=== PATIENT | female | born 2005 | race Caucasian/White ===

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

== ENCOUNTER 2025-02-01 00:22 | Emergency (ER) | payer OTHER, SELFPAY ==
[2025-02-01 00:03] VITALS: BP 123/81; BP 130/86; PULSE 114; PULSE 93; RESP 16; TEMP 37.1; O2SAT 98; BMI 22.6
[2025-02-01 00:49] LABS: UPreg QC Valid YES
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
[2025-02-01 02:48] VITALS: BP 113/71; PULSE 84; RESP 16; TEMP 36.7; O2SAT 98
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
[2025-02-01 03:26] VITALS: BP 113/71; PULSE 84; RESP 16; TEMP 36.7; O2SAT 98
== END 2025-02-01 03:27 | disposition home or self-care (01) ==
PROVIDERS: Emergency Provider Emergency Medicine
DX: M54.2 Cervicalgia (principal); M54.6 Pain in thoracic spine; M54.50 Low back pain, unspecified; V43.62XA Car passenger injured in collision with other type car in traffic accident, initial encounter; Y93.9 Activity, unspecified; Y92.9 Unspecified place or not applicable; Y99.9 Unspecified external cause status; F41.9 Anxiety disorder, unspecified; Z59.01 Sheltered homelessness; Z33.1 Pregnant state, incidental
CPT/HCPCS: 81025; 99284

== ENCOUNTER 2025-02-17 23:02 | Emergency (ER) | payer OTHER, SELFPAY ==
[2025-02-17 23:16] VITALS: BP 117/72; PULSE 74; RESP 18; TEMP 36.9; O2SAT 99; BMI 21.3
--- OUTSIDE RECORDS SUMMARY | 2025-02-18 00:43 | XMS_ITS ---
Author Name [facility] Organization Unknown Care Team Organization Name Specialty Phone Email Start Date End Da te [facility] 10/24/2022 024 [facility] 04/26/20222023
[2025-02-18 01:24] LABS: Hematocrit 30.3 % (37.0-47.0); Hemoglobin 10.6 g/dl (12.0-16.0); Mean Corpuscular HGB Conc 35.0 g/dl (31.0-35.0); Mean Corpuscular Hemoglobin 28.3 pg (27.0-33.0); Mean Corpuscular Volume 81.0 fL (80.0-98.0); NRBC Abs Auto 0.000 X10*3/uL (0.0-0.012); NRBC Pct Auto 0.0 /100WBC (0.0-0.2); Platelet Count 283 X10*3/uL (160-400); Red Blood Count 3.74 X10*6/uL (4.20-5.50); White Blood Count 6.1 X10*3/uL (4.8-10.8)
[2025-02-18 01:25] LABS: Appearance Urine Clear; Glucose Urine UA Negative (Negative); PH 6.0 (5.0-9.0); Specific Gravity - Urine >= 1.030 (1.005-1.025); UMIC TRIGGER UACC YES
[2025-02-18 01:27] LABS: UACC Culture Trigger YES
[2025-02-18 01:49] LABS: Alanine Aminotransferase 9 U/L (0-31); Albumin Level 4.0 g/dL (3.5-5.0); Alkaline Phosphatase 48 U/L (39-117); Anion Gap 12 (12-20); Aspartate Amino Transferase 16 U/L (5-31); Blood Urea Nitrogen 9 mg/dL (9-16); Calcium 8.5 mg/dL (8.4-10.2); Carbon Dioxide 22 mmol/L (22-29); Chloride 108 mmol/L (96-108); Creatinine Clr Calc Pharmacy 136.4; Estimated Glomerular Filt Rate > 60; Potassium 3.3 mmol/L (3.3-5.1); Sodium 139 mmol/L (135-145); Total Protein 6.5 g/dL (6.5-8.0)
--- NOTE | 2025-02-18 02:12 | ED_ITS ---
HPI - General Adult General Chief complaint: Abdominal Pain Stated complaint: Vaginal bleeding early Time Seen by Provider: 02/18/25 02:03 Source: patient Limitations: no limitations History of Present Illness ED Provider: Abby Cano PA-C HPI narrative: 19-year-old female who is currently , last menstrual period being January 03, presents with dysuria. Patient states her urine is pink tinged. Associated lower abdominal discomfort and nausea, that she has been experiencing since she found out she was . Denies fever, or vaginal bleeding. The patient has a 1st appointment on February 21, she states it has a telehealth visit. She will physically be seen by her food truck caterer on March 03. Related Data Previous Rx's ?Medication ?Instructions ?Recorded doxylamine 10 mg-pyridoxine (vit 2 tab PO BEDTIME vomi ting #90 tabs 10/20/22 B6) 10 mg tablet,delayed release (Diclegis) acetaminophen 500 mg tablet 500 mg PO Q6H PRN fever or pain 02/01/25 #20 tabs vitamins no.102-iron 90 1 cap PO DAILY #90 ca ps 02/01/25 mg-folate 1 mg-dha 200 mg capsule cephalexin 500 mg capsule 500 mg PO Q12H #13 caps 08/13 ondansetron 4 mg disintegrating 4 mg PO Q8H PRN nausea and 02/18/25 tablet vomiting #10 tabs vit no.95-ferrous 1 tab PO DAILY #30 tabs 08/13 fumarate 28 mg-folic acid 800 mcg tablet ( Multivitamins) Allergies Allergy/AdvReac Type Severity Reaction Status Date / Time No Known Allergies Allergy Verified 02/17/25 23:21 Review of Systems 2 Review of Systems: Yes all other systems are reviewed and are negative Constitutional: Constitutional: Denies fatigue and Denies fever(s) Cardiovascular: Cardiovascular: Denies chest pain and Denies dyspnea Respiratory: Respiratory: Denies dyspnea Gastrointestinal: Gastrointestinal: Reports abdominal pain, Reports nausea and Denies vomiting Genitourinary: Genitourinary: Reports dysuria and Denies vaginal discharge Musculoskeletal: Musculoskeletal: Denies back pain Endocrine: Endocrine: Denies fatigue [facility] Past Medical History Attestation statement: The following information was validated with the patient. 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 History of COVID-19 , normal, incidental Anxiety disorder, unspecified Social History Social History Use of substances other than those prescribed or required for medical reasons: No Advance Directives: No Advance Directives Information Provided: Yes Patient : No Physical Exam ED Vital Signs: Vital Signs - 24 hr 02/17/25 23:16 02/18/25 02:24 Temperature 98.5 F 98.5 F Pulse Rate 74 72 Respiratory Rate 18 15 Blood Pressure 117/72 107/65 Pulse Oximetry 99 98 Oxygen Delivery Method Room Air Room Air BMI result Body Mass Index 21.3 Const Other: Alert well-appearing Orientation/consciousness: patient oriented x3 Resp Effort & Inspection: normal respiratory effort Cardio Other: Normal peripheral perfusion GI Other: Soft nondistended nontender no guarding General: Yes no CVA tenderness Back/Spine/Pelvis Back: no CVA tenderness Skin Other: Warm dry no rash Neuro General: patient oriented x3, gait normal, no focal motor deficits and CN's II- XI intact bilaterally Psych Other: Cooperative Medications Administered Discontinued Medications Generic Name Dose Route Start Last Admin Trade Name Freq PRN Reason Stop Dose Admin Cephalexin HCl 500 mg 02/18/25 02:13 02/18/25 02:27 Cephalexin 500 Mg Capsule PO 02/18/25 02:14 500 mg ONCE ONE Administration Medical Decision Making Medical Decision Making [facility] Narrative: 19-year-old female who is currently , last menstrual period being January 03, presents with dysuria. Patient states her urine is pink tinged. Associated lower abdominal discomfort and nausea, that she has been experiencing since she found out she was . Denies fever, or vaginal bleeding. The patient has a 1st appointment on February 21, she states it has a telehealth visit. She will physically be seen by her food truck caterer on March 03. Problem: History: Per patient I have considered the following differential diagnoses: Pyelonephritis, urinary tract infection, symptoms of early , threatened Plan: Patient is here with lower abdominal discomfort, she has had a for weeks, this is not new. She is not having any vaginal bleeding to suggest threatened . Screening labs reveal progression of her per her quant, her urine is infected, she is also passing hematuria, hence the pink urine. Performed bedside obstetric ultrasound, I can see an IUP and cardiac flicker. We will treat the urinary tract infection, no indication for imaging. I have independently reviewed the following tests: Labs: No leukocytosis, not anemic, no electrolyte abnormality, serum quant [id number], urine appears infected we will treat Differential Diagnosis Differential Diagnoses: The differential diagnosis associated with the presentation includes See [facility] Admission/Observation Consideration of admission/observation: Escalation of care including admission/observation considered Not applicable Lab Data [facility] Lab Attestation statement: I reviewed the patient's lab results. 02/18/25 01:19 02/18/25 01:19 Labs: Lab Results 02/18/25 Range/Units 01:19 WBC 6.1 (4.8-10.8) X10*3/uL RBC 3.74 L (4.20-5.50) X10*6/uL Hgb 10.6 L (12.0-16.0) g/dl Hct 30.3 L (37.0-47.0) % MCV 81.0 (80.0-98.0) fL MCH 28.3 (27.0-33.0) pg MCHC 35.0 (31.0-35.0) g/dl RDW 13.9 (11.0-16.0) % Plt Count 283 D (160-400) X10*3/uL MPV 11.1 (9.4-12.3) fL Absolute Nucleated RBC 0.000 (0.0-0.012) X10*3/uL Nucleated RBC % (auto) 0.0 (0.0-0.2) /100WBC Sodium 139 (135-145) mmol/L Potassium 3.3 (3.3-5.1) mmol/L Chloride 108 (96-108) mmol/L Carbon Dioxide 22 (22-29) mmol/L Anion Gap 12 (12-20) BUN 9 (9-16) mg/dL Creatinine 0.52 (0.5-1.4) mg/dL Estim Creat Clear Calc 136.4 Estimated GFR > 60 Random Glucose 83 (60-115) mg/dL Calcium 8.5 D (8.4-10.2) mg/dL Total Bilirubin 0.6 (0.0-1.0) mg/dL AST 16 (5-31) U/L ALT 9 (0-31) U/L Alkaline Phosphatase 48 (39-117) U/L Total Protein 6.5 (6.5-8.0) g/dL Albumin 4.0 (3.5-5.0) g/dL Beta HCG, Quant 10804 mIU/mL Urine Color Dark Yellow Urine Appearance Clear Urine pH 6.0 (5.0-9.0) Ur Specific [place] >= 1.030 H (1.005-1.025) Urine Protein Trace (Neg-Trace) mg/dL Urine Glucose (UA) Negative (Negative) mg/dL Urine Ketones 40 (Negative) mg/dL Urine Blood Trace H (Negative) Urine Nitrite Negative (Negative) Ur Leukocyte Esterase Small (1+) H (Negative) Urine RBC 3-5 H (0-2) /HPF Urine WBC 6-10 H (0-5) /HPF Ur Squamous Epith Cells 6-10 (0-2) /HPF Urine Bacteria None Seen (None Seen) Hyaline Casts 0-2 (0-2) /LPF Prescription Management I considered prescription management with: Antibiotic Social Determinants Patient?s care significantly limited by Social Determinants of Health including: Inadequate housing and Low income Discharge Plan Discharge Clinical Impression: and not yet delivered in first trimester, Urinary tract infection Patient Disposition: Home, Self-Care Instructions: (ED), Urinary Tract Infection in Women (ED) Additional Instructions: All of your screening labs were normal, you were found to have a urinary tract infection. See home care instructions. Take the cephalexin as directed. Be sure to mention your urinary tract infection when you speak with your food truck caterer via your telehealth visit. Uses Zofran as needed for nausea. I will attempt to send a new prescription for vitamins to your pharmacy. Prescriptions: New ondansetron 4 mg tablet,disintegrating 4 mg PO Q8H PRN (Reason: nausea and vomiting) Qty: 10 0RF cephalexin 500 mg capsule 500 mg PO Q12H Qty: 13 0RF PNV no.95-ferrous fumarate-FA [ Multivitamins] 28 mg iron- 800 mcg tablet 1 tab PO DAILY Qty: 30 0RF No Action acetaminophen 500 mg tablet 500 mg PO Q6H PRN (Reason: fever or pain) Qty: 20 0RF PNV [id number]-dha 90 mg iron- 1 mg-200 mg capsule 1 cap PO DAILY Qty: 90 0RF doxylamine-pyridoxine (vit B6) [Diclegis] 10-10 mg tablet,delayed release (DR/EC) 2 tab PO BEDTIME MDD 4 tabs Qty: 90 0RF Rx Instructions: Start 2 tabs po qhs; if sx persist after 2 days, increase to 1 tab PO qam and 2 tabs PO qhs; may further increase to 1 tab PO qam every mid afternoon, and 2 tabs PO qhs; Max; 4 tabs/day:give on empty stomach; do no crush/chew tab Stand Alone Forms: Work/School Release Print Language: Hungarian
[2025-02-18 02:24] VITALS: BP 107/65; PULSE 72; RESP 15; TEMP 36.9; O2SAT 98
[2025-02-18 04:28] VITALS: BP 107/65; PULSE 72; RESP 15; TEMP 36.9; O2SAT 98
== END 2025-02-18 04:47 | disposition home or self-care (01) ==
PROVIDERS: Emergency Provider Emergency Medicine
DX: O23.41 Unspecified infection of urinary tract in pregnancy, first trimester (principal); N39.0 Urinary tract infection, site not specified; R30.0 Dysuria; R10.30 Lower abdominal pain, unspecified; R11.0 Nausea
CPT/HCPCS: 36415; 80053; 81001; 84702; 85027; 87086; 99283; 99284